=== PATIENT | male | born 1960 | race Caucasian/White ===

== ENCOUNTER 2021-05-21 10:18 | Outpatient (CLI) | payer OTHER, SELFPAY ==
--- NOTE | ~2021-05-21 | CT_ITS ---
EXAMINATION:CT diagnostic chest wo con DATE: 05/21/2021 10:52 INDICATION: Abnormal findings on diagnostic imaging. TECHNIQUE: Computed tomography (CT) of the chest was performed without intravenous contrast. Automate d exposure control and iterative reconstruction technique were employed. The dose-length product (DLP ) was 380.61 mGy-cm. COMPARISON: Chest 2 views 06/05/2017 FINDINGS: There is mild emphysema. There is scarring at the lung apices, left worse than right. No pl eural effusion. The heart size is normal. There are coronary artery calcifications. No pericardial ef fusion. There is ectasia of ascending aorta measuring 4.3 cm. There is mild thoracic spondylosis. IMPRESSION: 1. Scarring at the lung apices, left worse than right. 2. Mild emphysema. 3. Ectasia of ascending aorta measuring 4.3 cm. Reviewed, dictated and finalized at location [facility].
== END 2021-05-21 10:19 ==
PROVIDERS: PCP Physician Assistant; Visit Provider Physician Assistant
DX: R93.89 Abnormal findings on diagnostic imaging of other specified body structures (principal); J43.9 Emphysema, unspecified; R91.8 Other nonspecific abnormal finding of lung field
CPT/HCPCS: 71250

== ENCOUNTER 2021-08-04 08:58 | Outpatient (CLI) | payer OTHER, SELFPAY ==
--- NOTE | 2021-08-04 12:57 | WPDPFTINT ---
PFT Procedure Performed PFT Procedure Performed Spirometry with Pre/Post Bronchodilator Plethysmography (Lung Vol) Diffusing Cap (DLCO) Flow Vol Loop PFT Interpretation This is a pulmonary function test with pre and post-bronchodilator spirometry, plethysmography and diffusing capacity. The test was performed and results interpreted in accordance with the 2019 and 2005 ATS/ERS Task Force guidelines respectively using the Global Lung Function Initiative-2012 reference equations. Patient demonstrated good effort and cooperation. Reproducibility criteria were met. The quality of the pre bronchodilator spirometry maneuver was Grade A and post bronchodilator spirometry maneuver was Grade A. Findings: Spirometry: There is decreased maximal expiratory airflow at all lung volumes with concave expiratory flow tracing. The pre bronchodilator FVC is 2.78 L, 59% predicted. The pre bronchodilator FEV1 is 1.79 L, 49% predicted. The FEV1: FVC ratio 64%. The post bronchodilator FVC is 2.93 L, representing a 5% increase. The post bronchodilator FEV1 is 1.98 L, representing an 11% increase. The post bronchodilator FEV1: FVC ratio 68%. Plethysmography: The total lung capacity is 6.17 L, 88% predicted. The functional residual capacity is 4.31, 118% predicted. The residual volume is 3.38, 152% predicted. Diffusing capacity: The absolute diffusion capacity is 18.7, 65% predicted. The diffusing capacity corrected for alveolar volume is 4.32, 101% predicted. Impression: There is a severe obstructive abnormality without significant improvement after inhaling a single dose of albuterol. The increase in residual volume is consistent with air trapping from an obstructive abnormality. The absolute diffusing capacity is mildly decreased and normalizes when corrected for alveolar volume. There are no prior studies for comparison
== END 2021-08-04 08:59 | disposition home or self-care (01) ==
PROVIDERS: PCP Physician Assistant; Visit Provider Physician Assistant
DX: J43.9 Emphysema, unspecified (principal); R94.2 Abnormal results of pulmonary function studies
CPT/HCPCS: 94060; 94726; 94729

== ENCOUNTER 2022-03-11 07:42 | Outpatient (CLI) | payer OTHER, SELFPAY ==
--- NOTE | 2022-03-11 13:35 | WPDSIXMINUTE ---
Six Minute Walk Procedure Procedure Performed Pulmonary Stress Test (6 min walk) Six Minute Walk Six Minute Walk: This is a 6 minute walk test. The test was performed and interpreted in accordance with the 2014 ERS/ATS task force guidelines. Findings: The patient's resting room air oxygen saturation measured by pulse oximetry was 99% and heart rate was 103 bpm. Patient ambulated for 457 meters and oxygen saturation remained 94 to 99%. Heart rate at the end of the study was 97 bpm. The patient did not qualify for supplemental oxygen at rest or with ambulation. There are no prior studies for comparison.
== END 2022-03-11 07:43 | disposition home or self-care (01) ==
LOC: ANHPFT 07:45
PROVIDERS: PCP Physician Assistant; Visit Provider Nurse Practitioner
DX: J44.9 Chronic obstructive pulmonary disease, unspecified (principal)
CPT/HCPCS: 94618

== ENCOUNTER 2023-04-02 10:46 | Emergency (ER) | payer MEDICAID, SELFPAY ==
--- NOTE | ~2023-04-02 | CT_ITS ---
EXAMINATION: CT abdomen pelvis w con DATE: 04/02/2023 12:02 INDICATION: Left upper quadrant abdominal pain for 2 to 3 weeks, worse with coughing, movement TECHNIQUE: Computed tomography (CT) of the abdomen and pelvis was performed with 100 CC Omnipaque 350 intravenous contrast. Automated exposure control and iterative reconstruction technique were employe d. Exam dose: 971.52 mGy-cm total exam DLP. COMPARISON: None. FINDINGS: The lung bases are clear. Normal heart size. No pericardial or pleural effusion. The liver, gallbladder, bile ducts, pancreas, pancreatic duct and spleen as well as adrenal glands an d kidneys are normal. Small cyst in the lower aspect of each kidney, measuring up to 5 mm on the righ t. No urinary tract calculus or hydroureteronephrosis. There is diffuse thickening of the urinary bladder wall, likely due to prostatomegaly, less likely in fection. Normal appendix. No bowel obstruction or intraperitoneal free air. There is extensive calcification of the abdominal aorta and some calcification of celiac and superior mesenteric and iliac arteries. No abdominal aortic aneurysm. No intraperitoneal or retroperitoneal o r pelvic mass lesion or adenopathy or ascites.. Bilateral fat-containing inguinal hernias. Degenerative changes of the lower thoracic and lumbar spine. No suspicious osteolytic or osteoblastic lesions are noted. Included lower ribs are intact. IMPRESSION: No cause for left upper quadrant abdominal pain is identified Reviewed, dictated and finalized at [facility]. Reviewed, dictated and finalized at location A.
[2023-04-02 10:47] VITALS: BP 157/97; PULSE 112; RESP 18; TEMP 36.8; O2SAT 100
[2023-04-02 11:18] LABS: Basophils Absolute Auto 0.1 K/mm3 (0.0-0.1); Basophils Percent Auto 1.5 % (0.2-1.2); Eosinophils Absolute Auto 0.1 K/mm3 (0-0.3); Eosinophils Percent Auto 1.8 % (0-4.4); Hematocrit 45.3 % (42.0-52.0); Hemoglobin 15.6 g/dL (14.0-18.0); Immature Granulocyte Absolute 0.01 K/mm3 (0.00-0.031); Immature Granulocyte Percent A 0.2 % (0-0.5); Lymphocytes Absolute Auto 1.19 K/mm3 (0.9-3.2); Lymphocytes Percent Auto 19.4 % (18.3-44.2); Mean Corpuscular HGB Conc 34.4 g/dl (32-36); Mean Corpuscular Hemoglobin 32.4 pg (26-34); Mean Corpuscular Volume 94.2 fl (80-100); Mean Platelet Volume 8.9 fl (7.4-10.4); Monocytes Absolute Auto 0.4 K/mm3 (0.1-0.6); Monocytes Percent Auto 6.2 % (2.6-8.5); Neutrophils Absolute Auto 4.3 K/mm3 (1.3-6.7); Neutrophils Percent Auto 70.9 % (45.5-73.1); Platelet Count Result 227 k/mm3 (150-375); Red Blood Count 4.81 M/mm3 (4.6-6.20); Red Cell Distribution Width 12.9 % (11.5-14.5); White Blood Count 6.1 K/mm3 (4.5-10.0)
[2023-04-02 11:38] VITALS: BP 147/101; PULSE 96; RESP 18; O2SAT 97
[2023-04-02 11:41] LABS: Alanine Aminotransferase 35 U/L (6-50); Albumin Level 4.1 g/dL (3.5-5.1); Alkaline Phosphatase 99 U/L (38-126); Anion Gap 5 mmol/L (8-16); Aspartate Amino Transferase 56 U/L (17-59); Bilirubin,Total 0.4 mg/dL (0.2-1.3); Blood Urea Nitrogen 7 mg/dL (9-20); Calcium 8.1 mg/dL (8.4-10.2); Carbon Dioxide 29 mmol/L (22-30); Chloride 102 mmol/L (98-107); Estimated CRCL calculation 71 ml/min; Estimated Glomerular Filt Rate > 60; Glucose 99 mg/dL (65-110); Lipase 157 U/L (23-300); Sodium 136 mmol/L (137-145)
[2023-04-02] MEDS: MORPHINE SULFATE (*CRX) 4 MG/ML INJ IV PUSH (11:41)
[2023-04-02] MEDS: ONDANSETRON INJ 4 MG/2 ML VIAL IV PUSH (11:41)
[2023-04-02 11:43] LABS: Appearance Urine Clear (Clear); Bacteria Urine None Seen /hpf; Bilirubin Urine Negative (Negative); Blood Urine Trace (Negative); Color Urine Yellow (Yellow); Glucose Urine UA Negative (Negative); Ketones Urine Negative (Negative); Leukocyte Esterase Ur Negative LEU/UL (Negative); Nitrate Urine Negative (Negative); Protein Urine Negative (Negative); RBC Urine 0-2 /hpf (0-2); Specific Grav Ur 1.012 (1.001-1.035); Squamous Epithelial Cell Urine None seen /hpf (Few); WBC Urine 0-5 /hpf; pH Urine 5.5 (5.0-9.0)
[2023-04-02 11:45] LABS: Add Urine Microscopic? YES
--- NOTE | 2023-04-02 12:45 | ED.GENADULT ---
HPI - General Adult General Chief complaint: Abdominal Pain Stated complaint: left abd pain x 2 weeks Time Seen by Provider: 04/02/23 11:00 History of Present Illness HPI narrative: Patient is a 62-year-old male who presents ER with left-sided abdominal pain. Ongoing over the last 2 to 3 weeks. Constant and aching. Occasionally increases in discomfort. Normal bowel movements and normal passage of gas. No aggravating factors that he can find. No alleviating factors. Patient does drink alcohol regularly and daughter is concerned she could have pancreatitis. No nausea or vomiting. No fevers or chills or sweats. No urinary frequency urgency or dysuria. Related Data Allergies Allergy/AdvReac Type Severity Reaction Status Date / Time No Known Allergies Allergy Unknown Unverified 06/05/17 08:01 Review of Systems Review of Systems: All systems reviewed & are unremarkable except as noted in HPI and below Constitutional: Constitutional: Denies chills and Denies fever(s) ENT: Denies nasal congestion and Denies sore throat Cardiovascular: Cardiovascular: Denies chest pain, Denies rapid heart rate and Denies radiating jaw, neck or arm pain Respiratory: Respiratory: Denies cough and Denies dyspnea Gastrointestinal: Gastrointestinal: Denies abdominal pain, Denies nausea and Denies vomiting Genitourinary: Genitourinary: Reports no additional male genitourinary complaints PMFSH Past Medical History Medical History (Updated 04/02/23 @ 18:27 by Chang Pena MD) COPD (chronic obstructive pulmonary disease) Hypertension Surgical History Surgical History (Updated 04/02/23 @ 18:27 by Chang Pena MD) No history of previous surgery Social History Social History (Updated 04/02/23 @ 18:27 by Chang Pena MD) Smoking status: Current every day smoker Exam Narrative: GENERAL: Well-appearing, well-nourished, and in no acute distress. HEAD: Normocephalic, atraumatic. ENT: Mucous membranes moist. NECK: Supple. CHEST: Clear to auscultation. No respiratory distress. HEART: Regular rate and rhythm. Normal peripheral pulses. ABDOMEN: Soft, tender palpation left upper quadrant without guarding or, nondistended. EXTREMITIES: Normal range of motion. No edema. SKIN: Warm, dry, no rash. NEURO: Alert and oriented x3. PSYCH: Normal mood and affect. Course Vital Signs Vital signs: Vital Signs Temperature 98.2 F 04/02/23 10:47 Pulse Rate 112 H 04/02/23 10:47 Respiratory Rate 18 04/02/23 10:47 Blood Pressure 157/97 H 04/02/23 10:47 Pulse Oximetry 100 04/02/23 10:47 Oxygen Delivery Room Air 04/02/23 10:47 Temperature 98.2 F 04/02/23 10:47 Pulse Rate 96 04/02/23 13:56 Respiratory Rate 17 04/02/23 13:56 Blood Pressure 158/99 H 04/02/23 13:56 Pulse Oximetry 98 04/02/23 13:56 Oxygen Delivery Room Air 04/02/23 10:47 Medical Decision Making MDM Narrative Medical decision making narrative: -Presentation: 62-year-old male who presents ER with abdominal pain -DDX includes but is not limited to: Pancreatitis, diverticulitis, GERD -Co-morbidities complicating care: Hypertension, alcohol abuse -Social determinants of health: Unemployed -External Chart Review: None -Hx from independent Sources: Patient and daughter. -Independent interpretation of studies: CBC normal. CMP as well as lipase also normal. Urinalysis negative. Normal CT of the abdomen and pelvis. -Discussion of Management/Consultants: none -Dx tests considered but not ordered: none -Procedures: none -Interventions: Morphine 4 mg, Zofran 4 mg -Shared decision making / Disposition: Pain improving. Informed of results. No acute intervention required but possible gastritis versus gastric ulceration is in the differential and will be treated. -RX: Protonix 40 mg 1 tab p.o. twice daily x14 days. Vital Signs Vital Signs: Vital Signs Temperature 98.2 F 04/02/23 10:47 Pulse Rate
[2023-04-02 13:24] VITALS: BP 156/98; PULSE 102; RESP 17; O2SAT 100
[2023-04-02 13:56] VITALS: BP 158/99; PULSE 96; RESP 17; O2SAT 98
== END 2023-04-02 13:57 | disposition home or self-care (01) ==
PROVIDERS: Emergency Provider Emergency Medicine
DX: R10.12 Left upper quadrant pain (principal); J44.9 Chronic obstructive pulmonary disease, unspecified; I10 Essential (primary) hypertension; F17.200 Nicotine dependence, unspecified, uncomplicated
CPT/HCPCS: 36415; 74177; 80053; 81001; 83690; 85025; 96374; 96375; 99284; J2270; J2405; Q9967